=== PATIENT | male | born 1965 | race Caucasian/White ===

== ENCOUNTER 2023-02-20 06:06 | Observation (INO) ==
--- NOTE | 2023-01-10 13:44 | PAT Medication Instructions ---
Medication Instructions Date of Service January 10, 2023 Home Medications bupropion HCl 150 mg 24 hr tablet, extended release 300 mg PO QAM cyclobenzaprine 10 mg tablet 10 mg PO TID PRN muscle spasms duloxetine 60 mg capsule,delayed release 60 mg PO QAM gabapentin 300 mg capsule 300 mg PO HS lisinopril 5 mg tablet 5 mg PO QAM meloxicam 15 mg tablet 15 mg PO QAM tamsulosin 0.4 mg capsule 0.8 mg PO HS MEDICATION INSTRUCTIONS: ASK your surgeon for instructions meloxicam 15 mg tablet 15 mg PO QAM DO NOT take the morning of surgery cyclobenzaprine 10 mg tablet 10 mg PO TID PRN muscle spasms lisinopril 5 mg tablet 5 mg PO QAM Take morning of surgery With a small sip of water, OTHERWISE NOTHING TO EAT OR DRINK AFTER MIDNIGHT: duloxetine 60 mg capsule,delayed release 60 mg PO QAM bupropion HCl 150 mg 24 hr tablet, extended release 300 mg PO QAM Take evening before surgery tamsulosin 0.4 mg capsule 0.8 mg PO HS gabapentin 300 mg capsule 300 mg PO HS Other Notes If you have any questions please call us at [phone] or [phone] or [phone] or [phone]
--- NOTE | 2023-02-03 10:50 | Anesthesiology Consultation ---
Date of Service February 03, 2023 Assessment & Plan (1) Encounter for pre-operative examination: - COVID screening: Per assessment on 02/03: No known COVID-19 positive contacts or current COVID-19 related symptoms. Travel screen negative. Patient vaccinated. - Possible difficult intubation Chart Review Chart Review: Acceptable Risk for Surgery and Patient seen in Pre Admission Testing Teaching & Discussion Pre-Anesthesia Teaching/Discussion Notes: Instructed NPO after midnight before surgery,except medications with 15 cc of water. Medication instructions provided according to the PAT guidelines. History Surgery Operation Date: 02/20/23 07:45 Proposed Procedures p C5-C6 Anterior Cervical Discectomy and Fusion, C3-C6 Fusion, C4 Corpectomy, Spinal Cord Monitoring - Marito Winkler, Height/Weight Height: 5 ft 11 in Weight: 73.1 kg Allergies Allergy/AdvReac Type Severity Reaction Status Date / Time No Known Allergies Allergy Verified 01/05/23 08:28 Medications Home Medications Medication Instructions Recorded Confirmed Last Taken bupropion HCl 150 mg 24 hr tablet, 300 mg PO QAM 01/05/23 01/05/23 Unknown extended release cyclobenzaprine 10 mg tablet 10 mg PO TID PRN muscle spasms 01/05/23 01/05/23 Unknown duloxetine 60 mg capsule,delayed 60 mg PO QAM 01/05/23 01/05/23 Unknown release gabapentin 300 mg capsule 300 mg PO HS 01/05/23 01/05/23 Unknown lisinopril 5 mg tablet 5 mg PO QAM 01/05/23 01/05/23 Unknown meloxicam 15 mg tablet 15 mg PO QAM 01/05/23 01/05/23 Unknown tamsulosin 0.4 mg capsule 0.8 mg PO HS 01/05/23 01/05/23 Unknown Past Medical History Medical History Anxiety BPH (benign prostatic hyperplasia) Chronic back pain Degenerative disc disease Depression Fibromyalgia Hypertension Peripheral neuropathy bilateral arms Exercise / Class Metabolic Activity III < 4 Walking/Shop/Light housework (one FS (no CP, mild SOB)) Past Family History Family History Other No family history of adverse response to anesthesia Past Surgical History Surgical History History of colonoscopy History of esophagogastroduodenoscopy (EGD) S/P excision of lipoma Past Anesthesia History No Hx of Anesthesia Complications and No Family Hx of Anesthesia Complications History of PONV No Hx of PONV and No Hx of Motion Sickness STOP BANG Total 5 Social History Smoking Status: Current every day smoker tobacco type: cigarettes Do You Dip or Chew Tobacco: No Smoking End Date: Quit early 01/2023 Hx Alcohol Use: No Hx Substance Use: Yes substance use type: marijuana (Inhaled, daily- advised) Review of Systems Patient denies chest pain, shortness of breath, dyspnea on exertion, fever, chills, cough, wheezing, palpitations. Physical Exam Vital Signs VITALS BP 130/82 P 58 TEMP 98.5 SP02 96%RA RESP 16 PHYSICAL Full cervical extension range of motion. Full TMJ range of motion. TMD 3.5 finger breaths Mallampati Score 4 (small oral opening) Dentition: edentulous, upper/lower dentures Lungs: clear throughout to auscultation Cardiac: regular rate and rhythm, no murmurs noted Spine: normal Carotid arteries: negative bruit Extremities: no LE edema Lab Results Anesthesia Preop Results Results Anesthesia Widget: WBC 7.41 K/ul (4.8-10.8) 02/03/23 Hgb 16.3 g/dl (14.0-18.0) 02/03/23 Hct 45.2 % (42.0-52.0) 02/03/23 Plt 202 K/uL (130-400) 02/03/23 Na 139 mmol/L (136-145) 02/03/23 K 4.2 mmol/L (3.5-5.1) 02/03/23 Cl 105 mmol/L (98-107) 02/03/23 CO2 28 mmol/L (21-32) 02/03/23 BUN 23 mg/dl (6-23) 02/03/23 Creat 1.01 mg/dl (0.6-1.4) 02/03/23 Glucose Level 76 mg/dl (70-99(Fasting)) 02/03/23 PT 10.8 Seconds (9.0-12.0) 02/03/23 PTT 26.7 Seconds (21.0-31.0) 02/03/23 INR 1.0 (0.9-1.1) 02/03/23 Urine Color Yellow 02/03/23 Urine Appearance Clear (Clear) 02/03/23 Urine pH 6.5 (4.5-7.5) 02/03/23 Urine Specific [place] 1.020 (1.000-1.030) 02/03/23 Urine Protein Negative (Negative) 02/03/23 Urine Glucose (UA) Negative (Negative) 02/03/23 Urine Ketones Negative (Negative) 02/03/23 Urine Blood Negative (Negative) 02/03/23 Urine Nitrite Negative (Negative) 02/03/23 Urine Bilirubin Negative (Negative) 02/03/23 Urine Urobilinogen Negative (Negative) 02/03/23 Urine Leukocyte Esterase Negative (Negative) 02/03/23 Blood Type B Positive 02/03/23 Antibody Screen NEGATIVE 02/03/23 Testing Electrocardiogram Date: 02/03/23 SB at 54bpm. Otherwise normal ECG. Chest X-Ray Date: 02/03/23 Findings: + NAD COVID-19 Risk Screen Screening Information COVID-19 Screen Date: 02/03/23 Exposure 21 Days Family/Household +COVID Last 21 Days: No Exposure 10 Days Any COVID Exposure Last 10 Days: No Symptoms Last 10 Days Experienced COVID Sx Last 10 Days: No + COVID 0-90 Days COVID + in Last 0-90 Days: No
[~2023-02-20 06:06] MED LIST: ACETAMINOPHEN 500 MG TAB PO SCH; CeleBREX 200 MG CAP PO SCH; GABAPENTIN 600 MG DOSE PO SCH; LR 15ML/HR IV SCH; LR 60ML/HR IV SCH; ceFAZolin 2000MG 2,000 MG/15 ML SYR IV SCH
[2023-02-20] MEDS ORDERED: DexMEDEtomidine HCL IV 100 MCG/ML VIAL IV ONE (06:48)
[2023-02-20] MEDS ORDERED: ceFAZolin 330 MG/ML 1 GM VIAL ONE (07:05)
[2023-02-20] MEDS ORDERED: ONDANSETRON INJ 2 MG/ML 2 ML VIAL IV PRN ×2 (07:20→11:06)
[2023-02-20] MEDS ORDERED: ATROPINE SULFATE 0.1 MG/ML 10ML SYR IV PRN (07:20)
[2023-02-20] MEDS ORDERED: LABETALOL HCL IV 5 MG/ML 20ML IV PRN (07:20)
[2023-02-20] MEDS ORDERED: PROMETHAZINE HCL 12.5 MG in SODIUM CHLORIDE 0.9% 50 ML IV PRN ×2 (07:20→11:06)
[2023-02-20] MEDS ORDERED: DEXAMETHASONE SOD INJ 4 MG/ML VIAL ONE (07:26)
[2023-02-20] MEDS ORDERED: LIDOCAINE 2% 2 ML VIAL/AMP(20MG/ML) INFIL ONE (07:26)
[2023-02-20] MEDS ORDERED: ONDANSETRON INJ 2 MG/ML 2 ML VIAL ONE (07:26)
[2023-02-20] MEDS ORDERED: ROCURONIUM BROMIDE 10 MG/ML 5 ML VIAL IV ONE ×2 (07:26→08:40)
[2023-02-20] MEDS ORDERED: PROPOFOL IV EMULSION 10 MG/ML 20 ML VIAL IV ONE (07:26)
[2023-02-20] MEDS ORDERED: MIDAZOLAM HCL 1 MG/ML 2ML VIAL ONE (07:27)
[2023-02-20] MEDS ORDERED: fentaNYL citrate PF 100 MCG/2 ML VIAL ONE ×2 (07:27→09:23)
[2023-02-20] MEDS ORDERED: KETAMINE 50 MG/5 ML SYRINGE ONE (07:27)
--- NOTE | 2023-02-20 07:31 | History & Physical Bridge Note ---
Date of Service February 20, 2023 History & Physical Bridge Note I have examined the patient, reviewed the History & Physical and in the interval since the performance of the History & Physical I have noted the following changes of clinical significance: no changes noted
--- NOTE | 2023-02-20 07:32 | History & Physical Report ---
Date of Service February 20, 2023 Assessment & Plan (1) Cervical stenosis of spinal canal: Plan: C5-C6 anterior cervical discectomy and fusion, C3-C6 fusion, C4 corpectomy History of Present Illness Chief Complaint: Neck and arm pain Primary Care Provider: Baron Cespedes MD This is a 57-year-old male who presents with chronic persistent neck and arm pain and swelling since a course of nonoperative care is here for surgical invention. Allergies Allergy/AdvReac Type Severity Reaction Status Date / Time No Known Allergies Allergy Verified 02/20/23 06:40 Home Medications Medication Instructions Recorded Confirmed Type bupropion HCl 150 mg 24 hr tablet, 300 mg PO QAM 01/05/23 02/20/23 History extended release cyclobenzaprine 10 mg tablet 10 mg PO TID PRN muscle spasms 01/05/23 02/20/23 History duloxetine 60 mg capsule,delayed 60 mg PO QAM 01/05/23 02/20/23 History release gabapentin 300 mg capsule 300 mg PO HS 01/05/23 02/20/23 History lisinopril 5 mg tablet 5 mg PO QAM 01/05/23 02/20/23 History meloxicam 15 mg tablet 15 mg PO QAM 01/05/23 02/20/23 History tamsulosin 0.4 mg capsule 0.8 mg PO HS 01/05/23 02/20/23 History Past Med/Surg History Medical History Anxiety BPH (benign prostatic hyperplasia) Chronic back pain Degenerative disc disease Depression Fibromyalgia Hypertension Peripheral neuropathy bilateral arms Surgical History History of colonoscopy History of esophagogastroduodenoscopy (EGD) S/P excision of lipoma Family History Other No family history of adverse response to anesthesia Social History Smoking Status: Current every day smoker Smoking End Date: Quit early 01/2023; Second Hand Exposure: Yes; Do You Dip or Chew Tobacco: No; Tobacco Cessation Education Requested by Patient: No Hx Alcohol Use: No Hx Substance Use: Yes Preferred Language: [place] Islander Communication Ability: Effective Gamma Operator Required: No Beliefs That Will Affect Care: None Current Living Situation: Family and Significant Other Other Information That Helps Us Care for You: No Feels Safe at Home: Yes Safety Concerns: Feels Safe At This Time Assistive Devices: Denture - Upper, Denture - Lower and Glasses Physical Exam Physical Exam: Patient is alert and oriented Heart regular in rhythm Lungs clear Results & Data Results & Data Vital Signs (Past 12 Hours) Vital Signs Temp Pulse Resp BP Pulse Ox O2 Del Method 02/20/23 06:43 36.8 C 81 20 151/97 H 97 Room Air
[2023-02-20] MEDS ORDERED: ePHEDrine sulfate 50 MG/ML AMP ONE (08:27)
[2023-02-20] MEDS ORDERED: PHENYLEPHRINE HCL 10 MG/ML VIAL ONE (08:31)
[2023-02-20] MEDS ORDERED: SUGAMMADEX SODIUM 200 MG/2 ML VIAL IV ONE (08:41)
[2023-02-20] MEDS ORDERED: FLOSEAL HEMOSTATIC MATRIX 10ML TOP ONE (08:45)
--- NOTE | 2023-02-20 09:37 | Operative Report ---
Post Operative Report Pre & Post Diagnosis Operation Date: 02/20/23 07:45 Pre-Op Diagnosis: Cervical spinal stenosis with myeloradiculopathy Post-Op Diagnosis: Same I identified the patient and participated in the time-out.: Yes Procedure Operation Date: 02/20/23 07:45 Actual Procedures 1. Anterior cervical corpectomy with bilateral foraminotomies C4. 2 anterior cervical discectomy C5-C6. #3 anterior cervical arthrodesis C3-C5 and C5-C6. #4 placement of peek cage 25 mm in height at C3-C5 and 9 mm at C5-C6. #6 placement locally harvested morselized autograft combined with I factor interbody cages. #7 placement of K2 M screws from C3 to c 6. Surgeon Marito Winkler, DO Mica Plate Layer Hand Rossana Hernandez Estimated Blood Loss 20 Findings Consistent with Post-Op Diagnosis Specimens none Indications This is a 57-year-old male presents above-mentioned diagnosis after failing course of nonoperative care is here for the above-mentioned procedure. Description of Procedure Patient met with identified informed consent obtained. Patient was then taken to the operative suite underwent patient placed in spine position the Jex table at Terry overhead distribution engineer. All bony promises well-padded eyes inspected to ensure no external pressure placed upon the. This point the anterior cervical spine was prepped draped in a sterile fashion. The assistance of fluoroscopy identified the C3-C4 disc space and a longitudinal incision was made along the right anterior aspect the cervical spine. Blunt dissection with assistance of bipolar electrocautery to form down to and exposing the anterior cervical spine from C3 3 to C6. Self-retaining retractors placed. Then performed a complete discectomy of C3 3 C4 out to the uncovertebral joint bilaterally followed by Cameron 4C5. Ingraham distraction pins were then placed in C3 and C5 to distract across the C4 vertebral body. Complete corpectomy was then performed including removal of all posterior and the fibers longitudinal ligament bilateral foraminotomies. Endplates were then burred to subcortically and bone and a 25 mm peek cage filled with locally harvested morselized autograft and I factor tapped in position. I then proceeded to C5-C6. Again complete discectomy performed out to the uncovertebral joints bilaterally. Ingraham distractor pins again utilized. I removed all posterior fibers longitudinal ligament bilateral foraminotomies performed. Endplates burred to subcortical bleeding bone and 9 mm peek cage filled locally harvested morselized autograft and I factor tapped in position. Distracting apparatus was removed all anterior osteophytes burred to smooth cortical surface and a K2 M plate and screws applied with the assistance of fluoroscopy. The incision was then copiously irrigated explored to ensure no damage to surrounding structures or remaining bleeding. 10 round BEV drain inserted. The incision was then closed with 2 Vicryl in a fashion of 4 Monocryl for final skin closure. Steri-Strip sterile dressing placed. Patient awakened taken to PACU in stable condition. Please note spinal cord monitoring was utilized at the procedure no changes noted. Lastly Rossana Hernandez was present at the entire surgeon while the patient positioning complex portion of the surgery and final skin closure. I attest to the content of the Intraoperative Record and any orders documented therein. Any exceptions are noted below.
[2023-02-20] MEDS: HYDROmorphone INJ 1 MG/ML SYRINGE IV PRN ×4 (10:19→10:34)
--- NOTE | 2023-02-20 10:45 | Fluoroscopy Report ---
FL cervical 2-3V CLINICAL HISTORY: C5-C6 ACDF, C3-C6 FUSION, C4 CORPECTOMY TECHNIQUE: 2 views were obtained with the C-arm in the OR with the above procedure. Total fluoroscopy time was 10.1 seconds. Radiation dose was 0.77 mGy. Comparison: None available at the time of this dictation. FINDINGS/IMPRESSION: Intraoperative images were obtained of an ACDF spanning C3-C6 with C4 corpectomy . Please correlate with intraoperative fluoroscopy and operative report. ACT 112: Negative or not required by law. Electronically signed by: Oleksandr Snow M.D. 02/20/2023 10:44 AM
--- NOTE | 2023-02-20 10:58 | Anesthesiology Progress Note ---
Date of Service February 20, 2023 Anesthesia Post Procedure Vital Signs Vital Signs: Temp Pulse Pulse Resp BP Pulse Ox O2 Del Method 02/20/23 10:05 79 12 165/93 H 98 Oxymask 02/20/23 10:35 36.1 C L 93 H 12 118/94 99 Nasal Cannula 02/20/23 10:25 88 13 151/91 H 97 Nasal Cannula 02/20/23 10:15 87 12 156/93 H 97 Nasal Cannula 02/20/23 09:55 90 14 164/100 H 97 Oxymask 02/20/23 09:45 36.6 C 76 12 150/88 H 97 Oxymask 02/20/23 06:43 36.8 C 81 20 151/97 H 97 Room Air O2 Flow Rate 02/20/23 10:05 10 02/20/23 10:35 2 02/20/23 10:25 2 02/20/23 10:15 2 02/20/23 09:55 10 02/20/23 09:45 10 02/20/23 06:43 Pain Intensity Bilateral Neck: Pain Intensity: 3 Posterior Neck: Pain Intensity: 4 Transfer of Care Handoff Completed per policy Notes Mental Status: alert / awake / arousable Patient Amnestic to Procedure: Yes Nausea / Vomiting: adequately controlled Pain: adequately controlled Airway Patency, RR, SpO2: stable & adequate BP & HR: stable & adequate Hydration State: stable & adequate Anesthetic Complications: no major complications apparent
[2023-02-20] MEDS ORDERED: METOCLOPRAMIDE HCL INJ 5 MG/ML 2 ML VIAL IV PRN (11:06)
[2023-02-20] MEDS ORDERED: ACETAMINOPHEN 1,000 MG/100 ML VIAL IV PRN (11:06)
[2023-02-20] MEDS ORDERED: DO NOT ADMINISTER PNEUMOCOCCAL VACCINE PRN (11:06)
[2023-02-20] MEDS ORDERED: ACETAMINOPHEN 500 MG TAB PO PRN (11:06)
[2023-02-20] MEDS ORDERED: ALUMINUM/MAGNESIUM SUSP 30 ML UDC PO PRN (11:06)
[2023-02-20] MEDS ORDERED: LORazepam 2 MG/1 ML VIAL IV PRN (11:06)
[2023-02-20] MEDS ORDERED: HYDROmorphone INJ 1 MG/ML SYRINGE IV PRN (11:06)
[2023-02-20] MEDS ORDERED: LORazepam 0.5 MG TAB PO PRN (11:06)
[2023-02-20] MEDS ORDERED: NALOXONE HCL 0.4 MG/1 ML VIAL/CARP IV PRN (11:06)
[2023-02-20] MEDS ORDERED: RACEPINEPHRINE 2.25% NEBU SOLN 0.5 ML VIAL INH PRN (11:06)
[2023-02-20] MEDS ORDERED: hydrOXYzine HCl 25 MG TAB PO PRN (11:06)
[2023-02-20] MEDS ORDERED: traMADol HCL 50 MG TABLET PO PRN (11:06)
[2023-02-20] MEDS ORDERED: SOD PHOSPHATE/SOD BIPHOSPHATE ENEMA 132 ML BTL PR PRN (11:06)
[2023-02-20] MEDS ORDERED: diphenhydrAMINE Capsule 25 MG CAP PO PRN (11:06)
[2023-02-20] MEDS ORDERED: dexAMETHasone 8 MG in SYRINGE 0 ML IV PRN (11:06)
[2023-02-20] MEDS ORDERED: FAMOTIDINE 20 MG TAB PO PRN (11:06)
[2023-02-20] MEDS ORDERED: HYDROmorphone INJ 0.5 MG/0.5 ML SYR IV PRN (11:06)
[2023-02-20] MEDS ORDERED: DO NOT ADMINISTER FLU VACCINE PRN (11:06)
[2023-02-20] MEDS ORDERED: MAGNESIUM HYDROXIDE SUSP 30 ML UDC PO PRN (11:06)
[2023-02-20] MEDS ORDERED: ONDANSETRON 4 MG OD TAB PO PRN (11:06)
[2023-02-20] MEDS ORDERED: bisacodyL 10 MG SUPP PR PRN (11:06)
[2023-02-20] MEDS: LACTATED RINGER'S 1,000 ML IV SCH ×2 (11:20→19:05)
[2023-02-20] MEDS: oxyCODONE HCL IR 5 MG TAB (IMMEDIATE RELEASE) PO PRN (14:53)
[2023-02-20] MEDS: ceFAZolin 2000MG 2,000 MG/15 ML SYR IV SCH (16:27)
[2023-02-20] MEDS ORDERED: TAMSULOSIN HCL 0.4 MG CAP PO SCH (21:00)
[2023-02-20] MEDS ORDERED: DOCUSATE SODIUM/SENNA 50/8.6MG TAB PO SCH (21:00)
[2023-02-20] MEDS ORDERED: GABAPENTIN 300 MG CAP PO SCH (21:00)
[2023-02-21] MEDS: ceFAZolin 2000MG 2,000 MG/15 ML SYR IV SCH (00:12)
[2023-02-21] MEDS ORDERED: POLYETHYLENE (MIRALAX) 17 GM PACK PO SCH (06:00)
[2023-02-21] MEDS: oxyCODONE HCL IR 5 MG TAB (IMMEDIATE RELEASE) PO PRN ×2 (07:29→14:09)
[2023-02-21] MEDS ORDERED: buPROPion XL 300 MG TABCR PO SCH (09:00)
[2023-02-21] MEDS ORDERED: DULoxetine HCL 60 MG CAP PO SCH (09:00)
[2023-02-21] MEDS ORDERED: dexAMETHasone 6 MG in SYRINGE 0 ML IV SCH (09:00)
[2023-02-21] MEDS ORDERED: lisinopril 5 MG TAB PO SCH (09:00)
--- NOTE | 2023-02-21 10:13 | Discharge Summary ---
Date of Service February 21, 2023 Admission HPI Per Admitting Provider This is a 57-year-old male who presents with chronic persistent neck and arm pain and swelling since a course of nonoperative care is here for surgical invention. Principal Diagnosis Cervical spinal stenosis with myeloradiculopathy Discharge Data Allergies Allergy/AdvReac Type Severity Reaction Status Date / Time No Known Allergies Allergy Verified 02/20/23 06:40 Procedures Performed Operation Date: 02/20/23 07:45 Actual Procedures p C5-C6 Anterior Cervical Discectomy and Fusion, C3-C6 Fusion, C4 Corpectomy, Spinal Cord Monitoring(Not Applicable) - Marito Winkler DO Ordered Studies 02/20/23 07:45 FL cervical 2-3V Routine Hospital Course (1) Cervical stenosis of spinal canal: Patient underwent anterior cervical decompression and fusion tolerated as well as negative orthopedic floor postoperative. Postop day #1 he was swallowing well. No hoarseness. Arm symptoms markedly improved. Excellent strength testing. BEV drain decreasing appropriately. Subsidy discharged home. Discharge orders instructions from the chart for further review. Total Time Total Time Spent Total Time Spent (In Minutes): 20 minutes Discharge Plan Discharge Items Patient Disposition: Home - Self-Care Reason For Visit: Cervical Region Spinal Stenosis Discharge Diagnosis: Cervical spinal stenosis with myeloradiculopathy Activity: As commented below Non-emergency contact: Primary Care Provider Call non-emergency contact if: you have any medication questions Follow-up/Referrals: Baron Cespedes MD [Primary Care Provider] - Diet: Regular Addtl Attending Provider Instructions: ACTIVITY RECOMMENDATIONS: SELF CARE INSTRUCTIONS AFTER CERVICAL FUSIONS 1. No smoking. Smoking drastically decreases the chance of a solid fusion. 2. No bending, lifting more than 5 pounds, or twisting (roll like a log when turning in bed). 3. You may shower 3 days after surgery. Thoroughly dry wound. Do not soak in the tub. 4. Cervical collar: Must be worn at all times including sleeping. You may remove the brace only to bath, eat and if you are sitting in a recliner. 5. Please walk as much as you can for exercise. Gradually increase the distance that you walk as your endurance increases. SPECIAL CARE INSTRUCTIONS: VERY IMPORTANT TO READ AND REVIEW A. Do not take any anti-inflammatory medications (i.e. Indocin, Advil, Aspirin, Naprosyn, Aleve, Motrin, etc.) as these may inhibit the chance of a solid fusion. Tylenol is okay to take. B. Your surgical incision has been closed with a cosmetic suture under the skin that will dissolve in about 6 weeks. In 14 days, you can use a pair of clean scissors and cut the suture that is left outside of the skin at the ends of your incision. C. Complications are uncommon, but please contact us if you have any signs or symptoms of: 1. wound infection (fever higher than 102.5 degrees F, redness, separation of wound, drainage, or increasing pain from the incision) 2. blood clots in legs (pain, swelling, redness and warmth in legs) 3. urinary tract infection (fever higher than 102.5 degrees, burning upon urination or increased frequency of urination) 4. nerve problems (inability to walk on your toes or heels, numbness, loss of bowel or bladder control) 5. any other symptoms that concern you. D. Please call the office at if you have any concerns or questions about your operation or recovery. MANAGING PAIN AFTER SPINAL SURGERY 1. Narcotic medication is intended for short-term use and will be provided for surgical pain. Surgical pain usually lasts for a period of 4-6 weeks. Narcotic medication includes Percocet, Vicodin, Darvocet, Tylenol #3 or Lortab. 2. Longer-term pain is more appropriately treated with non-narcotic medication such as Tylenol ES. 3. Muscle spasm is not appropriately treated with narcotics. Muscle relaxers such as Soma, Flexeril or Skelaxin can be used along with Tylenol ES. 4. Remember that we all live with some "aches and pains". This is not unusual or uncommon after an injury or as we get older. 5. We will provide appropriate medication within the normal guidelines of their prescribed use. We will also be very cautious and aware of potential abuse and extended duration of patients' medication needs. 6. Please allow 2-3 days to process refills. Prescriptions will not be mailed but must be picked up at the office. FOLLOW UP VISIT: Keep your scheduled follow-up appointment. Any questions, please call the office at . Pending Studies at Discharge: No Stand-Alone Forms: [employer] Smoking Cessation Medications and DC Order Prescriptions: New tramadol 50 mg tablet 50 mg PO Q6H PRN (Reason: pain, moderate) Qty: 20 0RF oxycodone 5 mg tablet 5 mg PO Q6H PRN (Reason: pain) Qty: 20 0RF tramadol 50 mg tablet 50 mg PO Q6H PRN (Reason: pain, moderate) Qty: 20 0RF oxycodone 5 mg tablet 5 mg PO Q6H PRN (Reason: pain) Qty: 20 0RF Continued cyclobenzaprine 10 mg Tablet 10 mg PO TID PRN (Reason: muscle spasms) meloxicam 15 mg Tablet 15 mg PO QAM tamsulosin 0.4 mg Capsule 0.8 mg PO HS gabapentin 300 mg Capsule 300 mg PO HS lisinopril 5 mg Tablet 5 mg PO QAM bupropion HCl 150 mg Tablet Extended Release 24 Hr 300 mg PO QAM duloxetine 60 mg Capsule,Delayed Release(Dr/Ec) 60 mg PO QAM Discharge Orders: Discharge Order (Routine); Ordered 02/21/23 Ordered By: Marito Winkler Admission Data Admit Date/Time: 02/20/23 09:47 Attending Provider: Marito Winkler Admit Provider: Marito Winkler Primary Care Provider: Baron Cespedes
== END 2023-02-21 14:13 | disposition home or self-care (01) ==
LOC: ASU 06:06 → 3E 06:06